=== PATIENT | male | born 1960 | race Caucasian/White ===

== ENCOUNTER 2020-06-13 11:45 | Emergency (ER) | payer OTHER ==
[~2020-06-13] VITALS: Ht 193 cm; Wt 94.1 kg
--- NOTE | 2020-06-13 12:12 | PHYS DOC ---
Past History Past Medical History: No Pertinent History Past Surgical History: No Surgical History Alcohol Use: Occasionally Adult General Chief Complaint Chief Complaint: LACERATION/AVULSION [facility] HPI Patient is a 59yo male who presents for laceration. Onset was <1 hour prior to arrival while trying to open household item with pocketknife. Patient accidently thrust pocketknife into dorsel webbing of left hand. Patient reports suffering brisk blood loss for ~5mins prior to achieving hemostasis. Is not on blood thinners. Is not up to date on tetanus Review of Systems Review of Systems Fourteen body systems of review of systems have been reviewed. See HPI for pertinent positives and negative responses, other lilly all other systems are negative, non-pertinent or non-contributory Allergies Allergies Allergies Coded Allergies Type Severity Reaction Last Updated Verified No Known Drug Allergies 06/13/20 No Physical Exam Physical Exam Constitutional: Well developed, well nourished, no acute distress, non-toxic appearance. HENT: Normocephalic, atraumatic, bilateral external ears normal, oropharynx moist, no oral exudates, nose normal. Eyes: PERRLA, EOMI, conjunctiva normal, no discharge. Neck: Normal range of motion, no tenderness, supple, no stridor. Cardiovascular: Heart rate regular, sinus rhythm, no murmurs rubs or gallops Lungs & Thorax: Bilateral breath sounds clear to auscultation Abdomen: Bowel sounds normal, soft, no tenderness, no masses, no pulsatile masses. Nonsurgical abdomen, no peritoneal signs Skin: Warm, dry, no erythema, no rash. 3.0cm horizontal laceration to dorsal webbing of left hand without foreign body entrapment and/or muscle/nerve/tendon involvement. Bilateral UE pulses 2+, radial/median/ulnar nerve functions intact, cap refill <3sec Back: No tenderness, no CVA tenderness. Extremities: No tenderness, no cyanosis, no clubbing, ROM intact, no edema. Neurologic: Alert and oriented X 3, grossly normal motor & sensory function, no focal deficits noted. Psychologic: Affect normal, judgement normal, mood normal. Current Patient Data Vital Signs Vital Signs Date Time Temp Pulse Resp B/P (MAP) Pulse Ox O2 Delivery O2 Flow Rate FiO2 06/13/20 11:55 98.2 68 16 131/90 (104) 97 Room Air EKG EKG [] Radiology/Procedures Radiology/Procedures [] Heart Score Risk Factors: Risk Factors: DM, Current or recent (<one month) smoker, HTN, HLP, family history of CAD, obesity. Risk Scores: Risk Factors: DM, Current or recent (<one month) smoker, HTN, HLP, family history of CAD, obesity. Course & Med Decision Making Course & Med Decision Making Pertinent Labs and Imaging studies reviewed. 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 Dr. Reilly, hand surgeon at [facility] was consulted and case discussed. I applied recommendations of continued repair and application of pressure dressing until hemostasis was achieved Patient monitored in our ER for +1 hour without signs of rebleed. He remained neurovascularly intact with ap refill <3sec with complete motor/sensory control after repair. There was no evidence of rebleed. I discussed high risk nature of said repair on patient's hand with involvement of likely arterial vasculature that at present, has stopped bleeding. Strict return precautions were discussed extensively as advised by hand surgeon with good understanding by patient, all questions and concerns addressed prior to ED departure in stable condition Patient to follow-up with PCP in upcoming 7-10 days for suture removal. He was advised to present sooner if signs of infection and/or rebleeding ensue Dragon Disclaimer Dragon Disclaimer This electronic medical record was generated, in whole or in part, using a voice recognition dictation system. Laceration Repair Lac Repair Indication: hand laceration Procedure: The wound was irrigated with copious amounts of tap water and then cleansed with alcohol prep pad. The patient was placed in the appropriate position and anesthesia around the laceration was used utilizing 1cc 1% lidocaine. The area was then explored for potential foreign bodies and full motor/sensory functions were assessed. The laceration was closed with x3 simple interrupted sutures using 5.0 Prolene. The wound area was then dressed with a pressure dressing. Total repaired wound length: 3.0cm The patient tolerated the procedure well. 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 Attempts were made to find artery; however, it appeared to have retracted proximal into muscle/upper extremity. A tourniquet was applied and direct pressure by healthcare provider applied. Hand surgeon was consulted and [facility] and recommendations on plan of care applied with subsequent hemostasis achieved. Estimated blood loss ~5cc Departure Departure: Impression: Primary Impression: Skin laceration Disposition: 01 DC HOME SELF CARE/HOMELESS Condition: STABLE Referrals: CORBY LEBRON DO (PCP) Patient Instructions: Laceration Care, Adult Additional Instructions: As discussed prior to ER departure, please follow-up with your primary care physician in upcoming 7 to 10 days for suture removal You received a tetanus update immunization today. There is no role for antibiotics for your skin laceration Please used attached sheet to review wound care instructions. There was difficulty stopping the bleeding for one of your accessory arteries in the hand. As disclose, we contacted the [facility] hand surgeon bacon stringer and they recommended the management provided during your stay in the ER today. Nonetheless, you are at high risk for potential rebleed of said artery. if any concerning signs or symptoms present such as uncontrolled bleeding, pulsatile bleeding, increased numbness, motor or sensory changes of thumb or flushed color change in thumb occur prior to outpatient follow-up please do not hesitate to come back for repeat examination It was a pleasure to take care of you and I wish you a speedy recovery! CRUZ BONILLA DO Jun 13, 2020 12:12
[2020-06-13] MEDS ORDERED: DIPH,PERTUSS(ACELL),TET VAC/PF 0.5 ML SYRINGE. VAX IM ONE (12:15)
[2020-06-13 14:46] VITALS: BP 139/91
== END 2020-06-13 14:45 | disposition home or self-care (01) ==
LOC: ER 11:45
DX: S61.412A Laceration without foreign body of left hand, initial encounter (principal); Q70.12 Webbed fingers, left hand; W45.8XXA Other foreign body or object entering through skin, initial encounter; Y93.89 Activity, other specified; Y92.89 Other specified places as the place of occurrence of the external cause; Y99.8 Other external cause status
CPT/HCPCS: 12002; 90471; 90715; 99283